=== PATIENT | male | born 1985 | race Caucasian/White ===

== ENCOUNTER 2019-07-13 12:12 | Day surgery (SDC) | payer BC, OTHER ==
[2019-07-12 16:04] VITALS: BMI 29.4
[2019-07-13] MEDS ORDERED: oxyCODONE HCL 5 MG TABLET PO PRN ×2 (15:43)
[2019-07-13] MEDS ORDERED: ONDANSETRON 4 MG/2 ML VIAL IVPUSH PRN (15:43)
[2019-07-13] MEDS ORDERED: LACTATED RINGERS SOLUTION 1,000 ML IV SCH (15:45)
[2019-07-13] MEDS ORDERED: PROPOFOL 20 ML ONE ×2 (16:03→16:42)
[2019-07-13] MEDS ORDERED: MIDAZOLAM HCL 2 MG/2 ML SINGLE DOSE VIAL ONE ×2 (16:03)
[2019-07-13] MEDS ORDERED: ceFAZolin SODIUM 1 GM VIAL IVPB ONE (16:25)
[2019-07-13] MEDS ORDERED: BUPIVACAINE HCL/PF 0.25% (2.5MG/ML) 10 ML VIAL ONE (16:33)
[2019-07-13] MEDS ORDERED: BUPIVACAINE HCL 0.25% 125 MG/50 ML VIAL NR ONE (16:37)
--- NOTE | 2019-07-13 17:07 | OP ---
Operative Note - Note: Operative Date: 07/13/19 Pre-Operative Diagnosis: rt. scrotel hematoma Operation: rt. scrotel exploration and evacuation of hematoma and placement of mati drain Findings: large rt. hemiscrotel hematoma Post-Operative Diagnosis: Same as Pre-op Surgeon: Alicia Hyman Anesthesia: General Specimens Removed: blood clots Estimated Blood Loss (mls): 100 Drains, Volume Out (mls): 0 Blood Volume Replaced (mls): 0 Fluid Volume Replaced (mls): 0 Operative Report Dictated: Yes
[2019-07-13 18:51] VITALS: TEMP 98.4
--- NOTE | 2019-07-13 18:56 | CONS ---
DATE OF CONSULTATION: DATE OF DICTATION: 07/13/2019 HISTORY OF PRESENT ILLNESS: The patient is a 34-year-old male status post bilateral scrotal vasectomies 1 week earlier. Patient developed swelling and tenderness in his right hemiscrotum. Patient has been treated conservatively with icepacks, elevation, and NSAIDs but presently has a large tense hematoma of his right hemiscrotum. Attempts at aspiration in the office were not successful because of patient's pain response. Therefore patient is here for exploration of his right scrotum and evacuation of scrotal hematoma. He does have history of GERD. He takes a PPI for that. He denies any other surgeries. He denies ethanolism, tobacco, or allergies. PHYSICAL EXAMINATION: General: A well developed adult male in no apparent distress. Neck: Supple. No masses. No JVD. Chest: Clear to auscultation, percussion. Heart: Regular rhythm. Abdomen: Soft. No organomegaly. No hepatosplenomegaly. Bowel sounds are normoactive. Genitalia: Genitalia are those of a normal adult male. Meatus is adequate. Scrotum reveals an ecchymotic right hemiscrotum approximately 7 cm x 8 cm, tender to superficial dilation. An ultrasound at an earlier date revealed a large scrotal hematoma. Extremities: Reveal full range of motion with no cyanosis, clubbing, or edema. LABORATORY: BUN and creatinine are 8/0.8. IMPRESSION/PLAN: The patient will undergo right scrotal exploration and evacuation of hematoma. This was explained to the patient in detail, and he agrees. Jennifer [id number]
--- NOTE | 2019-07-13 18:57 | OP ---
DATE OF OPERATION: 07/13/2019 PREOPERATIVE DIAGNOSIS: Right hemiscrotal hematoma status post bilateral vasectomy one week earlier. POSTOPERATIVE DIAGNOSIS: Right hemiscrotal hematoma status post bilateral vasectomy one week earlier. OPERATIVE PROCEDURE: Scrotal exploration, evacuation of hematoma, irrigation of wound and placement of Carlos drain. ANESTHESIA: General. DESCRIPTION OF PROCEDURE: Under above-stated anesthesia, patient is prepped and draped in the usual sterile manner. He is placed in the supine position. A right hemiscrotal incision is made and this is taken down through skin, subcutaneous tissue. External and internal spermatic fascia as well as dartos fascia. The tunica vaginalis was opened and a large amount of aged blood was evacuated. No active bleeding was noted. Cauterization of the edges of the tunica vaginalis was performed for hemostasis. Several sutures were placed for imbrication of the hydrocele sac. A 0.5-inch Carlos was placed in the area and brought out a separate stab wound incision. The wound was irrigated with antibiotic solution. Closure was performed using 3-0 Vicryl suture ligatures. The skin was closed with 4-0 mattress; pressure dressing was applied as well as scrotal support. The patient tolerated the procedure well. He returned to the recovery room in good condition. Jennifer [id number]
[2019-07-13 19:27] VITALS: BP 126/80; PULSE 90
[2019-07-13] MEDS ORDERED: ACETAMINOPHEN 325 MG TABLET (FP) ONE (19:30)
[2019-07-13] MEDS ORDERED: ACETAMINOPHEN 500 MG TABLET (FP) PO ONE (19:48)
--- NOTE | 2019-07-17 16:02 | PATH ---
Surgical Pathology Report Patient Name: SAV GRISSOM Med. Rec. #: [id number] /Age/Gender: 1985 (Age: 34) / M Account: [id number] Location: [facility] Taken: Received: 07/16/2019 Reported: 07/17/2019 Physicians: Alicia Hyman M.D. Specimen(s) Received HEMATOMA Clinical History Hematoma Final Diagnosis HEMATOMA, EVACUATION: BLOOD CLOT, CONSISTENT WITH HEMATOMA. Electronically Signed Danielito Rashid M.D. Gross Description Received in formalin labeled "hematoma," is an 8.0 x 6.0 x 0.8 cm aggregate of red-brown blood clot. A [employer] portion is submitted in one cassette. /07/16/201907/16/2019
== END 2019-07-13 19:30 | disposition home or self-care (01) ==
LOC: JASU-SURG 12:12
PROVIDERS: ATTEND Urology
PROC: 0V9500Z Drainage of Scrotum with Drainage Device, Open Approach (ICD-10-PCS; principal; 2019-07-13 14:00)
DX: N99.840 Postprocedural hematoma of a genitourinary system organ or structure following a genitourinary system procedure (principal)
CPT/HCPCS: 94760